=== PATIENT | female | born 1960 | race Caucasian/White ===

== ENCOUNTER → 2017-02-28 | Outpatient (CLI) | payer BC ==
[~2017-02-28] MED LIST: ANAS1TAB19 PO; ATV1 PO; B-COCAP2 PO; BUPRTAB51 PO; BUTA1CAP17 PO; CYM60 PO; GABA-113 PO; GLC500 PO; HYDR-3714 PO; HYT/2 PO; IBUP-1451 PO; MULT-506 PO; SIMV40TA2 PO; TAMO20TA47 PO; VITA100C2 PO
[2017-02-28 13:51] VITALS: BP 109/70; PULSE 76; TEMP 37; O2SAT 97
--- NOTE | 2017-02-28 15:42 | Radiation Oncology Follow-Up ---
Radiation Oncology Follow-Up Date of Visit Feb 28, 2017. Reason For Visit 6 month follow-up Radiation Completion Date 08/01/16 Diagnosis (1) Breast cancer Onset Date: 02/28/2016 Stage: l (A) Permanent Comment: STAGING: Left Breast, invasive ductal carcinoma, grade 1, ER /NE positive, Her2 negative, [id number], stage IA TREATMENT: 1. Lumpectomy/SLN - 04/10/2016 - Dr. Katie Poe 2. Re-excision -05/02/2016 - Dr. Katie Poe 3. Plan for Arimidex with Dr. Ochoa after completing radiation therapy ( Prosigna Score - 28 - Low Risk) 4. Status post completion of radiation 08/01/2016 received 6640 cGy Last Edited By: Ruth Castillo on Aug 13, 2016 15:17 History of Present Illness Ms. Orozco is a 56-year-old postmenopausal female with a history of bilateral reduction mammoplasty 10 years ago who recently presented with an abnormal mammogram on 02/22/2016. The mammogram revealed scattered fibro- glandular densities in the left middle breast. The patient was brought back for a diagnostic left mammogram, ultrasound and spot compression on 02/23/2016 which confirmed a hypoechoic mass in the left breast at the 6 to 7 o'clock position 4 cm from the nipple measuring 5 mm in the greatest dimension. The patient subsequently underwent an ultrasound-guided biopsy on 02/28/2016 which confirmed invasive ductal carcinoma that was grade 1 and was estrogen receptor positive, progesterone receptor positive and HER-2 negative. The patient was subsequently referred to Dr. Katie Poe who discussed treatment options including mastectomy and breast conserving surgery and the patient elected for a lumpectomy. The patient underwent a lumpectomy and sentinel lymph node biopsy on 04/10/2016 which revealed invasive ductal carcinoma of the left breast that measured 5 mm in the greatest dimension. The tumor was grade 1 and there is no evidence of lymphovascular space invasion. Ductal carcinoma in situ was not present. 2 sentinel lymph nodes were biopsied and both were negative. The margins were positive in the anterior/inferior aspect of the resection. Dr. Poe brought the patient back for reexcision on 05/02/2016 which were negative. Margins were negative. The patient did have a Prosigna test completed on the surgical specimen and the score was in the low risk category with a score of 28/100. Dr[address] Ochoa saw the patient in consultation for medical oncology and discussed treatment recommendations and ultimately advised for anti-hormonal therapy only. We are now seeing the patient in consultation to discuss the role of radiation therapy. Overall, the patient is doing relatively well. She is healed up well from surgery. She has no complaints at this point. She was treated with conventional radiation therapy. Status post completion of radiation therapy 08/01/2016 received 6640 cGy Interim History She has noted no changes to her breast over the past 6 months. She has assist of the lower inner left breast. This is been present for a long period of time. She is following with Dr. Poe. She is going to have this excised on 03/07/2017. She denies pain. She has noted no redness or drainage. She has occasional tenderness of the lateral aspect of the left breast. There is been no change of the axilla. She is up-to-date on mammography. She had a mammogram 02/11/2017. Left breast findings are probably benign. A short interval follow-up was recommended in 6 months. On the right negative no evidence of malignancy. Normal interval follow-up in 12 months. BI-RADS Category 3. She had been on Arimidex. Us was stopped due to a side effect of sweating. She is now on tamoxifen. Has no complaint of side effects. Allergies Coded Allergies: Lisinopril (Verified Allergy, Mild, Bleeding, 05/29/16) Penicillins (Verified Allergy, Mild, RASH, ITCHY, 12/07/10) Nickel (Verified Allergy, Unknown, RASH, 12/08/10) Naproxen (Verified Adverse Reaction, Unknown, EMOTIONAL, 12/07/10) Sertraline (Verified Adverse Reaction, Unknown, ANXIOUS, 12/07/10) Home Medications Scheduled Bupropion (Wellbutrin-Xl), 300 MG PO DAILY Duloxetine Hcl (Cymbalta *), 120 MG PO QAM Gabapentin (Neurontin), 300 MG PO BID Lorazepam (Ativan *), 1 MG PO BID PRN Metformin HCL (Glucophage *), 1,000 MG PO BID Multivitamin (Multivitamin), 1 TAB PO DAILY Simvastatin (Zocor), 40 MG PO QPM Tamoxifen (Nolvadex), 20 MG PO DAILY Terazosin Hcl (Hytrin), 2 MG PO BID Vitamin B Cmplx/Vitc/Folic Ac (Nephrocaps), 1 CAP PO DAILY Vitamin E (Vitamin E 100 Iu), 100 INTER.UNIT PO DAILY Scheduled PRN Vozmcfuchv-Wbrpiwlhkehfp-Ocowy (Fioricet), 2 CAP PO Q4 PRN for Headache Hydrocodon/Acetaminophen 7.5MG/300MG (Vicodin Es (7.5MG/300MG)), 1 TAB PO Q6H PRN for Pain Ibuprofen Tab (Motrin), 800 MG PO Q6 PRN for Pain Review of Systems Gastrointestinal: Symptoms: WNL Oral: Symptoms: No Problems Respiratory: Symptoms: WNL Other Respiratory: Feels SOB with humid weather; Urinary: Symptoms: WNL Skin: Symptoms: No Problems Breast: Right Upper Arm Measurement: 34.0 Right Mid Arm Measurement: 25.8 Right Wrist Measurement: 16.0 Left Upper Arm Measurement: 33.0 Left Mid Arm Measurement: 26.0 Left Wrist Measurement: 16.0 Arm Dominence: Right Physical Exam Vital Signs Date Time Temp Pulse Resp B/P (MAP) Pulse Ox O2 Delivery O2 Flow Rate FiO2 02/28/17 13:51 37.0 76 16 109/70 97 Fatigue: None General Appearance: no apparent distress Eyes: normal inspection, EOMI ENT: normal ENT inspection, hearing grossly normal Neck: no adenopathy, thyroid normal Respiratory/Chest: lungs clear, no respiratory distress, no accessory muscle use Breast: Breast examination reveals well-healed incisions of the left breast. There is a cystic lesion of the inner aspects of the incision line. This is mobile. There is no erythema or edema. There are no signs of infection. There is no axillary adenopathy. There are no areas of tenderness. There are no nipple changes. Using the Michie score cosmesis she currently has a fair outcome. The right breast showed no masses or tenderness no axillary adenopathy. Cardiovascular: regular rate, rhythm, no gallop, no murmur Abdomen: non tender, soft Extremities: no pedal edema Neurologic/Psychiatric: no motor/sensory deficits, alert, normal mood/affect Skin: warm/dry Additional Studies Mammography as reviewed above. Assessment & Plan Plan: Continue on current schedule of mammography. She'll be due in August for the left breast mammogram. She continues on tamoxifen. She is going to have the cyst of the left breast excised March [address] Poe. Continue follow-up with Dr. Ochoa and her primary care physician. We asked her to return to our office in 1 year. She may call if she has any questions or concerns in the interim. Total Time In Follow-Up I spent 15 minutes with the patient and performing examination. I spent 15 minutes reviewing information and completing this note. Copy To Katie Poe MD; Samuel Bellamy M.D.; Xavier Ochoa M.D. Problem Qualifiers (1) Breast cancer: Breast location: lower inner quadrant of breast Estrogen receptor status: positive Patient sex: female Laterality: left Qualified Codes: C50.312 - Malignant neoplasm of lower-inner quadrant of left female breast; Z17.0 - Estrogen receptor positive status [ER+]
== END | disposition home or self-care (01) ==
LOC: C.ONC 13:39
PROVIDERS: ATTEND Physician Assistant Medical
DX: Z08 Encounter for follow-up examination after completed treatment for malignant neoplasm (principal); Z92.3 Personal history of irradiation; Z85.3 Personal history of malignant neoplasm of breast